=== PATIENT | male | born 1975 | race African-American/Black ===

== ENCOUNTER 2017-01-20 01:23 | Emergency (ER) ==
[2017-01-20] MEDS ORDERED: ASPIRIN PO STA (01:32)
[2017-01-20 01:41] LABS: MANUAL DIFF NEEDED? NO
[2017-01-20 01:45] LABS: BASO% 0.5 % (0.0-0.8); EOS# 0.18 X1000 (0.0-0.7); EOS% 2.4 % (0.0-10.0); HEMATOCRIT 47.3 % (42.0-52.0); HEMOGLOBIN 16.7 g/dL (14.0-18.0); IMM GRAN# 0.02 X1000 (0.0-0.04); IMM GRAN% 0.3 % (0.0-0.5); LYMPH# 2.89 X1000 (1.2-3.4); MCH 31.5 PG (27-31); MCHC 35.3 g/dL (33-37); MCV 89.1 FL (81-99); MONO# 0.96 X1000 (0.11-0.59); MPV 11.6 FL (7.4-10.4); NEUT% 44.8 % (42.2-75.2); PLT 222 X1000 (130-400); RBC 5.31 XMIL (4.7-6.1)
[2017-01-20 02:01] LABS: INR 0.97 (0.86-1.15); PROTIME 13.2 Seconds (12.1-15.5)
--- NOTE | 2017-01-20 02:01 | PROVIDER DOCUMENTATION ---
HPI-Cardiac General - General Source: patient - History of Present Illness-Cardiac Location: reports: substernal Quality of Pain: reports: aching Severity in ED: mild Onset/Duration: last night Timing: still present Context/Activities at Onset: reports: none Modifying Factors: improves with: nothing Palpitation Quality: fast/pounding heart beat Aspirin Treatment Today: reports: 325 mg x 1, provided by ED Associated Symptoms: reports: shortness of breath Similar Symptoms Previously?: No Recently Seen Here or By Another Healthcare Provider: No <Nathalie Oneill - Last Filed: 01/20/17 02:54> <Caesar Madera - Last Filed: 01/20/17 04:59> - General Chief Complaint: Chest Pain Stated Complaint: CHEST PAIN Time Seen by Provider: 01/20/17 01:58 Allergies/Adverse Reactions: Patient Allergies Allergy/AdvReac Type Severity Reaction Status Date / Time meperidine HCl * Allergy Intermediate dizziness Verified 01/30/13 08:50 [From Demerol] and hot sweats Home Medications: Home Medication List Medication Instructions Recorded Confirmed Last Taken Type ENALApril [Vasotec] 10 mg PO DAILY 01/30/13 01/20/17 09/18/15 History Levothyroxine [Synthroid] 50 microgm PO DAILY #30 tablet 01/20/17 Unknown Rx Metoprolol Succinate 50 mg PO DAILY #30 tab.er.24h 01/20/17 Unknown Rx - History of Present Illness-Cardiac Nature of Presenting Problem: 41 year old M presents to the ED with a cc of palpitations and chest pain. Pt states that he did not feel well at all yesterday. Pt states around 2300 his heart felt as if it was beating fast and he was having some chest pain. PT states also that he had some mild shortness of breath. (Nathalie Oneill) Review of Systems - Adult - REVIEW OF SYSTEMS - ADULT Constitutional: denies: chills, fever Eyes: reports: no symptoms reported Ears, Nose, Mouth & Throat: reports: no symptoms reported Cardiovascular: reports: chest pain, palpitations Respiratory: reports: shortness of breath. denies: cough Gastrointestinal: denies: nausea, vomiting Genitourinary: denies: dysuria, hematuria Musculoskeletal: reports: no symptoms reported Integumentary: reports: no symptoms reported Neurological: reports: no symptoms reported Psychiatric: reports: no symptoms reported Endocrine: reports: no symptoms reported Hematologic/Lymphatic: reports: no symptoms reported Allergic/Immunologic: reports: no symptoms reported All Other Systems: Reviewed and Negative <NinoNathalie - Last Filed: 01/20/17 02:54> Past History - Adult - PAST MEDICAL HISTORY-ADULT Review of Records: reports: Nursing Assessment Review, Medications Reviewed Major Childhood Illnesses: reports: denies history Cardiovascular: reports: HTN Respiratory: reports: asthma Endocrine/Immune: reports: Diabetes - PRIOR SURGERIES/PROCEDURES Surgical/Procedure History: reports: orthopedic (extremity), back/neck (back) - IMMUNIZATION STATUS Childhood Immunizations: See Nurse Assessment Flu Vaccine: See Nurse Assessment - SOCIAL HISTORY Smoking: non-smoker Substance Use: none/never Alcohol Use Frequency: never <NinoNathalie - Last Filed: 01/20/17 02:54> Physical Exam-General - PHYSICAL EXAM-ADULT Initial Vital Signs Reviewed: Yes - CONSTITUTIONAL General Appearance: appears well, alert, no apparent distress - RESPIRATORY Respiratory: chest non-tender, lungs clear, normal breath sounds - CARDIOVASCULAR Cardiovascular: normal peripheral pulses, regular rate, rhythm, no edema - GASTROINTESTINAL (ABDOMEN) Abdominal Exam: non tender, soft - MUSCULOSKELETAL Extremity: normal inspection, no pedal edema - SKIN Integumentary: normal color, normal turgor, warm/dry - PSYCHIATRIC Psych/Mental Status: normal mood/affect, normal thought content, normal thought process, oriented x 3 <NinoNathalie - Last Filed: 01/20/17 02:54> Progress - EKG 1 Time of EKG reading by physician:: 01:29 EKG Read and Signed by:: Caesar Madera EKG Interpretation (*Must complete 3 of following elements*): Abnormal Rate: 109 Rhythm: sinus tachycardia ST Wave: non-specific ST changes <NinoNathalie - Last Filed: 01/20/17 02:54> - EKG 2 Time of EKG reading by physician:: 04:52 EKG Read and Signed by:: Caesar Madera EKG Interpretation (*Must complete 3 of following elements*): Normal Rate: 102 Rhythm: sinus tachycardia Adona: normal QRS: normal - XRAY 1 XRAY Study: Chest Impression: Normal <Caesar Madera - Last Filed: 01/20/17 04:59> Departure <Nathalie Oneill - Last Filed: 01/20/17 02:54> - Departure Time of Disposition Order: 04:54 Certified Medical Emergency: Emergent <Caesar Madera - Last Filed: 01/20/17 04:59> - Departure DIAGNOSIS: Atypical chest pain, Rapid palpitations Hypothyroid Qualifiers: Hypothyroidism type: unspecified Qualified Code(s): E03.9 - Hypothyroidism, unspecified Disposition: HOME 01 Condition: Stable Additional Instructions: ED Follow Up Instructions: You have been treated by a care provider in the Emergency Department. These instructions are being provided to you so you can have an understanding of how to care for yourself upon discharge. Upon discharge from the Emergency Department, you are responsible for making arrangements for follow-up care by a physician of your choice. Take all prescribed medications as directed. Return to the Emergency Department immediately for any new or worsening symptoms. You may call the Physician Referral phone number at [phone] to obtain a list of Physicians who are taking new patients. Prescriptions: Metoprolol Succinate 50 mg PO DAILY #30 tab.er.24h Levothyroxine [Synthroid] 50 microgm PO DAILY #30 tablet Attestation - Scribe Verification/Attestation Scribe:: Nathalie Oneill Acting as Scribe for:: Caesar Madera Scribe documention review:: This chart was documented by a scribe and accurately reflects the service the provider performed and the decisions made by the provider. <Nathalie Oneill - Last Filed: 01/20/17 02:54> Physician Attestation
[2017-01-20 02:02] LABS: PTT PL 20.7 Seconds (22.6-43.9)
[2017-01-20 02:23] LABS: AGAP 17; ALBUMIN 4.7 g/dL (3.5-5.0); ALKALINE PHOSPHATASE 83 U/L (32-122); BUN 18 mg/dL (8-22); CHLORIDE 96 mmol/L (98-107); COSMO 277; GOT 114 U/L (10-34); GPT 135 U/L (10-44); POTASSIUM 4.2 mmol/L (3.5-5.1); SODIUM 136 mmol/L (136-145); TCO2 24 mmol/L (25-35); TOTAL PROTEIN 8.5 g/dL (6.3-8.3)
--- NOTE | 2017-01-20 02:24 | EKG Report ---
Test Performed on : 01/20/2017 01:29:26 AM Test Reason : CP/SOB Blood Pressure : / mmHG Vent. Rate : 109 BPM Atrial Rate : 109 BPM P-R Int : 156 ms QRS Dur : 066 ms QT Int : 352 ms P-R-T Axes : 034 010 -02 degrees QTc Int : 474 ms Sinus tachycardia. Nonspecific T wave abnormality Abnormal ECG When compared with ECG of 18-SEP-2015 19:12, No significant change was found Unconfirmed Result
[2017-01-20 02:25] LABS: CK PROFILE 1211 U/L (24-204)
[2017-01-20 02:41] LABS: CK INDEX 0.3 (0.0-2.5); CK-MB 4.04 ng/mL (0.0-5.0)
[2017-01-20 03:18] LABS: AMYLASE 83 U/L (20-200); LIPASE 71 U/L (13-60)
[2017-01-20 03:54] LABS: BILIRUBIN URINE NEGATIVE (NEGATIVE); BLOOD URINE 1+ (NEGATIVE); CLARITY CLEAR (CLEAR); COLOR YELLOW; GLUCOSE URINE NEGATIVE (NEGATIVE); LEUKOCYTES URINE TRACE (NEGATIVE); NITRITE URINE NEGATIVE (NEGATIVE); PROTEIN URINE TRACE mg/dL (NEGATIVE); UROBILINOGEN URINE NORMAL
[2017-01-20 03:59] LABS: UR AMPHETAMINES QUAL NONE DETECTED (NONE DETECT); UR BARBITUATES QUAL NONE DETECTED (NONE DETECT); UR BENZODIAZEPIN QUAL NONE DETECTED (NONE DETECT); UR CANNABINOIDS QUAL NONE DETECTED (NONE DETECT); UR COCAINE QUAL NONE DETECTED (NONE DETECT); UR MDMA QUAL NONE DETECTED (NONE DETECT); UR METHADONE QUAL NONE DETECTED (NONE DETECT); UR METHAMPHETAMINE QUAL NONE DETECTED (NONE DETECT); UR OPIATES QUAL NONE DETECTED (NONE DETECT); UR OXYCODONE QUAL NONE DETECTED (NONE DETECT); UR PCP QUAL NONE DETECTED (NONE DETECT); UR TCA QUAL NONE DETECTED (NONE DETECT)
[2017-01-20 04:12] LABS: CK INDEX 0.3 (0.0-2.5); CK-MB 3.73 ng/mL (0.0-5.0)
[2017-01-20 04:20] LABS: URINE CULTURE PL NEEDED? YES; URINE EPITHELIAL CELLS <10 /HPF (<10); URINE RBC <10 /HPF (<10); URINE SOURCE CLEAN CATCH; URINE WBC <10 /HPF (<10)
--- NOTE | 2017-01-20 04:32 | EKG Report ---
Test Performed on : 01/20/2017 04:21:59 AM Test Reason : repeat EKG per protocol Blood Pressure : / mmHG Vent. Rate : 102 BPM Atrial Rate : 102 BPM P-R Int : 160 ms QRS Dur : 076 ms QT Int : 324 ms P-R-T Axes : 030 012 -14 degrees QTc Int : 422 ms Sinus tachycardia. Nonspecific T wave abnormality Abnormal ECG When compared with ECG of 20-JAN-2017 01:29, (Unconfirmed) No significant change was found Unconfirmed Result
[2017-01-20 05:29] VITALS: BP 143/97
--- NOTE | 2017-01-20 07:59 | Diag Imaging Result Document ---
PROCEDURE NAME: CHEST-2 VIEWS - 01/20/2017 FRONTAL AND LATERAL CHEST, TWO VIEWS: COMPARISON: Compared to 09/18/2015. FINDINGS: Poor inspiratory effort. The heart is not enlarged. The vessels are not distended. No pneumonia. No pleural effusions. I believe there is a granuloma in the right apex. This is unchanged. No free air beneath the diaphragm. IMPRESSION: No acute abnormality.
== END 2017-01-20 05:29 | disposition home or self-care (01) ==
LOC: P.ED 01:23
DX: R07.89 Other chest pain (principal); R00.2 Palpitations; E03.9 Hypothyroidism, unspecified; R94.31 Abnormal electrocardiogram [ECG] [EKG]; R06.02 Shortness of breath; I10 Essential (primary) hypertension; E11.9 Type 2 diabetes mellitus without complications; Z79.899 Other long term (current) drug therapy
CPT/HCPCS: 71020; 80053; 80305; 81001; 82150; 82550; 82553; 83690; 83735; 83880; 84443; 84484; 85025; 85379; 85610; 85730; 87088; 93005; 99284